=== PATIENT | female | born 1965 | race African-American/Black ===

== ENCOUNTER 2018-12-05 08:00 | Day surgery (SDC) | payer BC ==
[2018-12-05 08:29] LABS: Specific Gravity 1.025 (1.005-1.030)
[2018-12-05] MEDS ORDERED: Ringers Lactate 1,000 ML IV ONE (08:32)
[2018-12-05] MEDS ORDERED: NA CHLORIDE 0.9% 1,000 ML ONE (09:41)
[2018-12-05] MEDS ORDERED: LIDOCAINE 1% W/EPI 1:100,000 MDV 50 ML VIAL ONE (09:41)
[2018-12-05] MEDS ORDERED: MIDAZOLAM HCL 2 MG/2 ML INJ ONE (10:44)
[2018-12-05] MEDS ORDERED: PROPOFOL 200 MG/20 ML VIAL IV ONE ×2 (10:44→11:41)
[2018-12-05] MEDS ORDERED: LIDOCAINE 2% MPF 5 ML VIAL ONE (10:44)
[2018-12-05] MEDS ORDERED: FENTANYL CITR 100 MCG/2 ML ONE (10:44)
[2018-12-05] MEDS ORDERED: ONDANSETRON 4 MG/2 ML VIAL ONE (10:47)
== END 2018-12-05 13:24 | disposition home or self-care (01) ==
LOC: OR 08:00
PROVIDERS: ATTEND Obstetrics & Gynecology
PROC: 0UJD8ZZ Inspection of Uterus and Cervix, Via Natural or Artificial Opening Endoscopic (ICD-10-PCS; 2018-12-05)
PROC: 0UDB7ZX Extraction of Endometrium, Via Natural or Artificial Opening, Diagnostic (ICD-10-PCS; principal; 2018-12-05 09:30)
DX: N95.0 Postmenopausal bleeding (principal); D25.9 Leiomyoma of uterus, unspecified; N93.0 Postcoital and contact bleeding; I10 Essential (primary) hypertension; Z79.899 Other long term (current) drug therapy; Z83.3 Family history of diabetes mellitus; Z82.49 Family history of ischemic heart disease and other diseases of the circulatory system
CPT/HCPCS: 81025; 88305; J2250; J2405; J2704; J3010; J7030

== ENCOUNTER 2019-01-31 06:35 | Day surgery (SDC) | payer BC ==
[2019-01-28 15:02] LABS: Urine Appearance CLEAR; Urine Bilirubin NEGATIVE (NEG); Urine Blood NEGATIVE (NEG); Urine Color YELLOW; Urine Glucose NEGATIVE (NEG); Urine Microscopic Reflex NO UMIC; Urine Protein NEGATIVE (NEG); Urine Specific Gravity 1.015 (1.005-1.030); Urine Urobilinogen 0.2 mg/dL (0.2-1.0)
[2019-01-28 15:11] LABS: Absolute Lymphocytes (CBC) 1.1 K/uL (0.7-4.9); Basophils % 0.4 % (0-1.3); Hematocrit 39.4 % (36.0-45.0); Lymphocytes % 20.9 % (15.3-44.8); MPV 9.6 fL (7.6-11.3)
--- NOTE | 2019-01-28 15:41 | EKG ---
Test Date: 2019-01-28 Test Time: 13:07:57 Shift Stacker: SHAMAR MEASUREMENT RESULTS: Intervals: Rate: 85 SD: 162 QRSD: 80 QT: 346 QTc: 411 [place]: P: 50 SD: 162 QRS: 13 T: -2 INTERPRETIVE STATEMENTS: Normal sinus rhythm Normal ECG No previous ECG available for comparison Electronically Signed On 01-28-19 15:41:07 CDT by Bradley Crawford
[2019-01-31] MEDS ORDERED: Ringers Lactate 1,000 ML IV ONE ×2 (06:57→11:32)
[2019-01-31] MEDS ORDERED: SCOPOLAMINE HYDROBROMIDE PATCH TD ONE (06:57)
[2019-01-31] MEDS ORDERED: PROPOFOL 200 MG/20 ML VIAL IV ONE (07:23)
[2019-01-31] MEDS ORDERED: MIDAZOLAM HCL 2 MG/2 ML INJ ONE (07:24)
[2019-01-31] MEDS ORDERED: ROCURONIUM 50 MG/5 ML VIAL IV ONE (07:24)
[2019-01-31] MEDS ORDERED: LIDOCAINE 2% MPF 5 ML VIAL ONE (07:24)
[2019-01-31] MEDS ORDERED: FENTANYL CITR 250 MCG/5 ML ONE (07:24)
[2019-01-31] MEDS ORDERED: dexAMETHasone 10 MG/ML VIAL ONE (07:24)
[2019-01-31] MEDS ORDERED: ONDANSETRON 4 MG/2 ML VIAL ONE ×2 (07:25→12:41)
[2019-01-31] MEDS: NA CHLORIDE 0.9% 1,000 ML ONE ×2 (07:33→07:55)
[2019-01-31] MEDS: CEFAZOLIN/SWI 2gm 2 GM/20 ML SYR ONE ×2 (07:34→07:55)
[2019-01-31] MEDS: Ringers Lactate 1,000 ML IV ONE ×3 (08:36→11:20)
[2019-01-31] MEDS ORDERED: FENTANYL CITR 100 MCG/2 ML ONE (10:27)
[2019-01-31] MEDS ORDERED: KETOROLAC 30 MG/ML INJ ONE (11:45)
[2019-01-31] MEDS ORDERED: MORPHINE 10 MG/ML VIAL ONE (12:04)
[2019-01-31] MEDS: HYDROMORPHONE HCL 1 MG/ML INJ ONE ×2 (12:21→12:27)
[2019-01-31] MEDS ORDERED: ONDANSETRON HCL 40 MG/20 ML VIAL ONE (12:40)
[2019-01-31] MEDS ORDERED: HYDROMORPHONE HCL 2 MG/ML inj ONE (12:47)
[2019-01-31] MEDS ORDERED: HYDROCODONE/APAP 5/325 MG TAB ONE (13:51)
--- NOTE | 2019-02-10 06:06 | OP ---
Date of Procedure: 01/31/2019 Surgeon: Madelin Garcia MD [employer] Hand: Quin Walton. Preoperative Diagnoses: Postmenopausal bleeding, pelvic pain, leiomyomata. Postoperative Diagnoses: Postmenopausal bleeding, pelvic pain, leiomyomata, endometriosis, left elisa ureteric adhesions. Procedures Performed: Total laparoscopic hysterectomy, bilateral salpingo-oophorectomy, vaginal morc ellation, endometriosis excision, left ureterolysis, and cystoscopy. Anesthesia: General endotracheal. Estimated Blood Loss: Minimal. Specimens: Uterus, bilateral tubes, and ovaries along with endometriosis. Findings: Endometriosis of bilateral ovaries and sidewall, left ureter adhered to the left uterosacr al endometriosis and so the ureterolysis had to be done in order to separate the ureter and keep it s afe while removing the endometriosis along with the uterus. Then, vaginal morcellation was performed to remove the uterus intact through the vagina. No spillage into the peritoneal cavity was noted. On cystoscopy, both ureteric orifices had strong jets of urine. There was a small raised lesion on t he trigone, more on the right side, raised transitional epithelial lesion. We will refer the patient to a urologist for further examination and possible biopsy. Patient is a 53-year-old with postmenopausal bleeding, pelvic pain. She was sampled. No evidence of any atypia or malignancy was seen or any leiomyosarcoma. She had large fibroids. The 2 largest wer e 5 cm and 4.5 cm. Total 4 were seen on the ultrasound, so we discussed about the options of conserv ative management, observation, versus removal of the uterus with looking at the etiology and morcella tion, the patient opted to have hysterectomy with tubes and ovaries removed. We discussed about poss ible postmenopausal symptoms and possible hormone therapy afterwards. 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 Description Of Procedure: After informed consent was verified, patient was taken back to OR, placed in the supine fashion on the operating table. 2 g of Ancef were given. After general anesthesia was given, she was placed in a dorsal lithotomy position. Arms tucked by the side and SCDs started. Ti me-out done. Pelvic exam performed and enlarged uterus found about 10-12 week size top in the left. Abdomen, vulva, vagina, and perineum were prepped and draped in a sterile fashion. Anne was placed to drain the bladder and attached to cysto tubing for retrograde filling. A large VCare was introduc ed into the uterus and fixed in place. Anterior abdominal wall since the uterus was large, a supraumbilical incision was made with a 15 blad e. 1 cm open laparoscopy was performed to find the fascia, incised with the help of a scalpel, essie aguillon on both sides with 0 Vicryl suture, then went on to make peritoneal incision sharply sit e of entry was checked and camera introduced to remove the upper abdominal surface completely unremar kable. Uterus enlarged, fibroid seen, especially the once to the right broad ligament and one large one in the posterior cul-de-sac and towards the left where I was not able to visualize the posterior cul-de-sac easily, but after manipulating the bowel, patient was placed in steep Trendelenburg. I wa s able to visualize and deemed this procedure to be possible and completed laparoscopically, so then proceeded with the procedure. A 5 mm right lower quadrant incision and left lower quadrant incisions were placed and a 10 mm suprap ubic. All ports were placed under direct vision and procedure started. The peritoneum was opened up below the round ligament on the left side and peritoneal incision to raise the bladder was done all the way onto the patient's right side till the fibroid was visible. The fibroid was low, pretty clos e to the cervix. So the right infundibulopelvic ligament was isolated by opening up the peritoneum o n the lateral wall with the help of the LigaSure. Then going caudad towards the round ligament, the mesosalpinx was taken down. The endometriosis was found on the ovary to be attached to it and scarre d. The uterosacral ligament had endometriosis and the ureter was not well visualized on the left enrique e. On the right side, the ureter was well visualized. No distortion. The endometriotic lesions wer e found on the right ovary as well and there was tubal hydrosalpinx. The utero-ovarian ligament was taken down. The tube and ovary , hanging on the infundibulop elvic ligament and this was taken down and the ovary and distal part of the tube were removed and lef t in the right paracolic gutter. The posterior peritoneum was taken down to the level of the left uterosacral endometriosis here. Onc e the broad ligament was taken down to skeletonize the vessels, I was able to dissect the ureter, sta rting below the level of the pelvic brim all the way down following the ureter and dissecting it away from the peritoneum medially and laterally. The ureter was isolated and dissected to the level of t he uterosacral here. It appeared to be very close to the uterine artery. So, dissection was perform ed sharply to open up the space between the ureter and the uterosacral ligament. There was no endome triosis around the ureter itself, so the ureter was laterally to reverse the ureteric tunne l. The endometriosis in the posterior peritoneum was taken down, dissecting them medially and freein g up from the ureter so that this would not get caught up and the vaginal cuff would be closed. Once this was done, the endometriosis was completely removed and pushed towards the side of the uterine s pecimen. Then, went on to open up the right side. This was slightly more difficult, so dissection h ad to be performed from the right lower quadrant. The peritoneum was opened up below the round ligam ent and connected over the fibroid to connect the bladder flap on the opposite side. Once this was d one, the fibroid was seen going from the anterior lateral aspect and connected to the sidewall and co uld be easily dissected off the sidewall. So, once this was done, I took down the round ligament and the uteroovarian ligament. The IP was isolated. Both peritoneal layers here were opened up to crea te a window and IP was taken with the LigaSure. The uteroovarian ligament was taken down as well. T he distal tube and the ovary were removed and left and the right paracolic gutter as well. Then, the round ligament was taken down. The entire posterior broad ligament was opened up into the right nulato rosacral without any problems. Then, the fibroid was dissected away from the sidewall and then the u terine vessels were skeletonized on the right lateral aspect. Then, the bladder flap was opened up w ith the help of monopolar hook blade opening the vesicovaginal space and pushing the bladder down. O nce this was done, medial window was made with monopolar hook blade to take down the vessels. Once t he vessels were taken down on the right side, then the left side vessels were also dissected in a sim ilar fashion taken down. Then, the bipolar basket tip was used to take down the cardinal ligaments o n both sides by creating windows. Once this was done, the LigaSure was used to cut this and monopola r hook blade used to perform a circumferential colpotomy, although this was complex. This was comple tely done without any problems. The specimen was detached and pulled out through the vaginal canal h olding the Allis clamp to the cervix. Once this was pulled down, then I went down vaginally to morce llate the uterus. With the help of a small [place], the was exposure was obtained in the Gutierrez retract ors. Then, using the mass clamps and a 10 blade, the uterus was bivalved and then the fibroids were removed sequentially as I was morcellating more and more then the anterior cord as well. Then, the e ntire specimen was detached and removed once it was small enough to fit through the vagina. The vaginal bulb was placed for occlusion of the air. Gown and gloves were changed, went back laparo scopically. Thorough irrigation and suction were performed. The tubes and ovaries were left in the right lower quadrant were removed through the vagina. The rest of the tubes were removed with the ut erine specimen. So, all the specimens were removed by this time. The vaginal bulb was replaced agai n. Vaginal closure with 0 Vicryl, 2 simple stitches at the angles, 2 [id number] starting from the right side and then a [id number], an extra pass was taken on the left side. The uterosacral ligaments appeared to be resuspended and connected to the vaginal apex. The ureter had no evidence o f electrical, mechanical, or thermal injury to it and there was normal peristalsis on both sides. The peritoneum was closed with the help of 3-0 Monocryl in a continuous running fashion. Once all th is was closed, pictures were taken. Trocars removed and gas desufflated. Umbilical fascial incision closed with the help of the tag suture of 0 Vicryl, tied to each other at both ends and then simple 0 Vicryl suture in the subcutaneous tissue. I was unable to close the suprapubic fascial incisions, so a deep suture was placed in the subcutaneous tissues here and all of her incision was closed with the help of 4-0 Vicryl interrupted sutures. Steri-Strips were placed. This area was closed. Anne was removed. Weighted vaginal bulb was removed. A 17-Trinidadian sheath, 30-degree lens and normal salin e were used for performing a cystoscopy normal. Strong ureteric jets from both ureteric orifices, th e small growth seen in the trigone on the right side. The pictures were taken, referral to urologist . The bladder was drained. Instrument, needle, and sponge counts were done and were correct at the end of the case. Vaginal cuff was examined with the help of the cystoscope, very well apposed and cl osed. No bleeding. EBL was minimal. The patient was recovered from anesthesia and taken to PACU in stable condition. KATHRYN/NEMO Voice ID: [id number] Report ID: [id number]
== END 2019-01-31 14:48 | disposition home or self-care (01) ==
LOC: OR 06:35
PROVIDERS: ATTEND Obstetrics & Gynecology
PROC: 0UT2FZZ Resection of Bilateral Ovaries, Via Natural or Artificial Opening With Percutaneous Endoscopic Assistance (ICD-10-PCS; 2019-01-31)
PROC: 0UT7FZZ Resection of Bilateral Fallopian Tubes, Via Natural or Artificial Opening With Percutaneous Endoscopic Assistance (ICD-10-PCS; 2019-01-31)
PROC: 0UB94ZZ Excision of Uterus, Percutaneous Endoscopic Approach (ICD-10-PCS; 2019-01-31)
PROC: 0UT9FZZ Resection of Uterus, Via Natural or Artificial Opening With Percutaneous Endoscopic Assistance (ICD-10-PCS; principal; 2019-01-31 07:30)
DX: D25.9 Leiomyoma of uterus, unspecified (principal); D27.0 Benign neoplasm of right ovary; N83.292 Other ovarian cyst, left side; N88.8 Other specified noninflammatory disorders of cervix uteri; N95.1 Menopausal and female climacteric states; N70.11 Chronic salpingitis; N93.0 Postcoital and contact bleeding; I10 Essential (primary) hypertension; Z79.899 Other long term (current) drug therapy
CPT/HCPCS: 36415; 81003; 81025; 85025; 86850; 86900; 86901; 88108; 88305; 88307; 93005; J0690; J1100; J1170; J2250; J2405; J2704; J3010; J7030